=== PATIENT | female | born 1960 | race Caucasian/White ===

== ENCOUNTER → 2022-01-10 | Outpatient (CLI) | payer OTHER ==
[~2022-01-10] VITALS: Ht 10.2 cm; Wt 88.5 kg
[~2022-01-10] MED LIST: ALPRAZOLAM ER1 MG PO; COZAAR 25 MG TA25 M1 PO; EMGALITY120 MG/1 M; ESCITALOPRA5 MG/5 ML PO; GABAPENTIN600 M1 PO; HYDROCODON-ACE1 EA11 PO; INTERMEZZO3.5 MG SUBLING; KLOR-CON M2020 MEQ PO; LEXAPRO 10 MG T10 M2 PO; LIPITOR 10 MG10 M1 PO; MAGNESIUM OXID400 M1 PO; METFORMIN HCL500 M3 PO; OMEPRAZOLE 20 M20 M1 PO; ONDANSETRON ODT4 MG PO; RIBOFLAVIN400 MG PO; SKELAXIN 800 M800 M1 PO; VALTREX 500 MG500 MG PO; VERAPAMIL ER240 M1 PO; VYEPTI100 MG/1 M IV; ZYRTEC10 M5 PO
[2022-01-10 10:40] VITALS: BP 137/70
--- NOTE | 2022-01-10 14:16 | NUR ---
[facility] Assessment: 1. History of Osteoarthritis: History of Rheumatoid Arthritis: 2. Height: 5 ft. 4 in. 10.2 cm. Weight: 195.0 lb. oz. 88.452 kg. Patient's BMI: 8501.7 3. Vital Signs: BP: 137/70 Pulse: 62 Resp: 16 Temp: 02 Sat: 97 ECG Mon: 4. Pain Intensity: 4 TODAY USUALLY 6-10 5. Fall Risk: Dizziness: N Needs help standing or walking: N Fallen in the last 3 months: N Fall risk comments: 6. Patient on Blood Thinner: None 7. History of Hypertension: Y 8. Opioid Therapy greater than 6 weeks: Opiate Contract Signed: 9. Risk Assessment Tool Provided: 10. Functional Assessment Tool: 46 11. Recreational Drug Use: Never Drug Type: Tobacco Use: Former Smoker Tobacco Type: Amount or Packs/day: How Many Years: Alcohol Use: Yes Frequency: Special Occasions Quant:
== END ==
LOC: PAIN 07:37
PROVIDERS: ATTEND Anesthesiology Pain Medicine
DX: M47.816 Spondylosis without myelopathy or radiculopathy, lumbar region (principal); M54.50 Low back pain, unspecified; G89.29 Other chronic pain; Z79.899 Other long term (current) drug therapy